=== PATIENT | male | born 1960 | race Caucasian/White ===

== ENCOUNTER 2016-10-24 07:15 | Day surgery (SDC) | payer OTHER ==
[~2016-10-24] VITALS: Ht 172.7 cm; Wt 91.0 kg
[~2016-10-24 07:15] MED LIST: 0.9% Sodium Chloride 1,000 ML IV SCH; AMLO10TA3 PO; ASPI-973 PO; LOSA1TAB70 PO; METO-274 PO; Sodium Chloride LOK Flush 10 mL Syringe IV PRN; fentaNYL-PF 50 mCg/mL 2 mL Inj IVPUSH PRN
[2016-10-24 07:33] VITALS: BP 165/81; PULSE 56; RESP 16; O2SAT 98
[2016-10-24 08:23] VITALS: BP 115/76; PULSE 45; RESP 14; O2SAT 93
--- NOTE | 2016-10-24 08:28 | PCM.ENDCOL ---
Colonoscopy Date of Service: Oct 24, 2016 Physician Neymar Christianson MD Pre Procedure Diagnosis: h/o colon polyp screening Post Procedure Dx & Findings: polyps hemmorhoids Procedure Colonoscopy PROCEDURE IN DETAIL: Prep adequate Withdrawal time 14 minutes After unremarkable rectal examination the Olympus video colonoscope was inserted patient's anal canal and was advanced to cecum. Landmarks were identified including the ileocecal valve and appendiceal orifice. Scope was withdrawn systematically. Visualized colonic mucosa showed healthy shiny mucosa with normal healthy-appearing vasculature. In the transverse colon, there was a 1 mm polyp which was removed completely using cold forceps. In the sigmoid colon there was a 1 mm polyp which was removed completely using cold forceps. In the rectum, there was a 1 cm polyp which was removed completely using hot snare. In the rectum there was also a scarring which is probably where the polypectomy was. In the rectum retroflexion was done which showed hemorrhoids. Anal canal was inspected carefully on the way out and hemorrhoids noted. Impression Polyps 3 status post complete removal. The largest polyp was 1 cm. Hemorrhoids Recommendation Repeat colonoscopy 3 years Presedation Assessment Risks and Benefits Informed consent was obtained from the patient after all risks and benefits including but not limited to drug reaction, infection, pain, bleeding, perforation, as well as alternatives were discussed. Patient monitoring Continuous pulse oximetry, cardiac monitoring, blood pressure monitoring, IV access, and oxygen at 2L per nasal cannula. Periprocedural Fentanyl: Fentanyl 100mcg Incrementally Midazolam: Midazolam 4mg Incrementally Complications There were no periprocedural complications identified. Post Procedure Plan Post Procedure Recommendations 1. Restrict activities today. 2. Resume normal activities in the morning. 3. Resume medications. 4. Patient informed of normal post procedure side effects as bloating, drowsiness, blood streaking in the stool. 5. average risk CRCS. If colon polyps come back as: -Hyperplastic- can repeat colonoscopy in 10 years -Tubular adenoma- repeat colonoscopy in 5 years -Tubulovillous/villous adenoma- repeat colonoscopy in 3 years -If any dysplasia- return to clinic as soon as possible 6. Please don't hesitate to call me with any questions. Neymar Christianson MD Oct 24, 2016 08:28
[2016-10-24 08:35] VITALS: BP 115/69; PULSE 51; RESP 14; O2SAT 95
[2016-10-24 08:40] VITALS: BP 141/88; PULSE 46; RESP 16; O2SAT 96
--- NOTE | 2016-10-25 11:00 | PATH ---
SURGICAL PATHOLOGY Attending Physician:Neymar Christianson M.D. CASE STATUS: Signed Out PATIENT NAME: MEDINA RAHMAN PID: [id number] : 1960 DATE COLLECTED:10/24/2016 17:33 SPECIMEN: 1: Colon, Biopsy 2: Colon, Biopsy 3: Rectum, Biopsy CLINICAL HISTORY: 1). TRANSVERSE COLON POLYP X1 2). SIGMOID COLON POLYP 3). RECTUM POLYP FINAL DIAGNOSIS: 1.TRANSVERSE COLON POLYP: SESSILE SERRATED ADENOMA INVOLVING SINGLE BIOPSY FRAGMENT. 2.SIGMOID COLON POLYP: TUBULAR ADENOMA INVOLVING BOTH BIOPSY FRAGMENTS. 3.RECTUM POLYP: POLYPOID MIXED TUBULAR AND VILLIFORM ADENOMA. ICD10 CODE D12.3 GROSS DESCRIPTION: The specimen is received in three formalin filled containers labeled with the patient's name. 1). The specimen is sublabeled "transverse colon polyp" and consists of 2 portions of tissue which aggregate to 0.3 x 0.3 x 0.2 CM. The specimen is entirely submitted in cassette 1A. 2). The specimen is sublabeled "sigmoid colon polyp" and consists of 2 portions of tissue which aggregate to 0.3 x 0.3 x 0.2 CM. The specimen is entirely submitted in cassette 2A. 3). The specimen is sublabeled "rectal polyp" and consists of a 0.6 x 0.6 x 0.6 CM portion of tissue which is entirely submitted in cassette 3A. 10/24/2016 DAC MICRO DESCRIPTION: See diagnosis. ICD-9 CODES: CPT CODES: 1: 08610 2: 42150 3: 35973 Electronically Signed Out Serafin Carlton MD [facility] [address], [place] [address] Technical component performed at [facility], [facility] [address], [place], [address]
== END 2016-10-24 23:59 | disposition home or self-care (01) ==
LOC: END 07:15
PROVIDERS: ATTEND Internal Medicine
DX: Z12.11 Encounter for screening for malignant neoplasm of colon (principal); Z86.010 Personal history of colon polyps; D12.3 Benign neoplasm of transverse colon; D12.5 Benign neoplasm of sigmoid colon; D12.8 Benign neoplasm of rectum; K64.9 Unspecified hemorrhoids; I10 Essential (primary) hypertension; Z79.82 Long term (current) use of aspirin
CPT/HCPCS: 45380; 45385; 99153; G0500; J2250; J3010; J7030